=== PATIENT | female | born 1980 | race Caucasian/White ===

== ENCOUNTER 2020-04-10 21:05 | Observation (INO) ==
[2020-04-10] MEDS ORDERED: ONDANSETRON HCL/PF 2 MG/ML VIAL IV ONE (21:46)
[2020-04-10 21:49] LABS: Hematocrit 41.4 % (37.0-47.0); Hemoglobin 13.5 gm/dL (12.5-16.0); Mean Cell Volume 92.4 fl (78-100); Mean Corpuscular Hemoglobin 30.1 pg (27-31); Mean Corpuscular Hgb Conc 32.6 g/dl (32-36); Mean Platelet Volume 8.9 fl (8-12.5); Neutrophil # 3.6 K/mm3 (1.3-6.0); Neutrophil % 47.4 % (42-75.0); Platelet Count 271 K/mm3 (150-450); Red Blood Count 4.48 M/mm3 (4.2-5.4); Red Cell Distribution Width 11.9 % (11.5-14.0); White Blood Count 7.6 K/mm3 (4.0-10.5)
--- NOTE | 2020-04-10 21:53 | ERNOTE ---
Psychological HPI - Date Date of Service: 04/10/20 - General Source: Reports: family Exam Limitations: Reports: intoxication, other - Due to patient overdose with medication and altered mental status - Immun/Allergies/Home Medications Allergies/Adverse Reactions: Allergies Penicillins Allergy (Verified 04/10/20 22:01) Home Medications: HOME MEDICATIONS NK 04/10/20 [Last Taken Unknown] - History of Present Illness Narrative: Patient is 39-year-old female presents to emergency room accompanied by her significant other ambulatory with chief complaint of intentional medication overdose with the purpose of hurting herself in about an hour and a half ago. Patient past medical history is not significant for any medical problem patient does not really see any doctor on regular basis. Patient denies not drink alcohol does not do any drugs or smoke cigarettes. Significant other reports about 2 hours ago they were in an argument and she grabbed 3 bottles of his medications which were cyclobenzaprine 10 mg and tizanidine 2 and he does not know how many pills were in the bottles she took dose that she came out and she induced vomiting and she had 4 vomiting pieces of medications coming up. they decided to come to emergency room. Initially she was responsive but she started feeling drowsy and not responsive she was a little combative in the initial evaluation but after I saw the patient about 15 minutes she was calm and sleeping. Time Seen by Provider: 04/10/20 21:27 Date (Duration): 04/10/20 Time (Timing): 16:00 Arrived by: Reports: private car Intent: Reports: no prior thoughts-suicide, other - Patient was involved in argument with significant other did not mention any intent of hurting herself or someone else. Review of Systems - Narrative Narrative: Unable to evaluate due to patient situation Medical History (Last Reviewed 04/11/20 @ 01:31 by Siena Sanchez RN) No pertinent past medical history Surgical History: Surgical History (Last Reviewed 04/11/20 @ 01:31 by Siena Sanchez RN) No pertinent past surgical history Family History: Family History (Last Reviewed 04/11/20 @ 01:31 by Siena Sanchez RN) Father Heart problem Social History: (Last Reviewed 04/11/20 @ 01:34 by Siena Sanchez RN) Tobacco: Smoking Status: Never smoker Alcohol: alcohol intake: current alcohol intake frequency: holiday/special occasion Substance Use: substance use type: does not use Psychological Exam - Exam General Appearance: Present: mild distress, lethargic, irritable Head Exam: Present: normal inspection, no evidence of injury Neurological: Present: withdraws to pain, other - Patient is very drowsy and withdraws to pain. Patient does not have any focal neurological finding. Eye Exam: Normal inspection: bilateral, PERRL: bilateral, EOMI: bilateral Ears, Nose, Throat: Present: normal ENT inspection Neck: Present: normal inspection, supple Respiratory: Present: no respiratory distress, normal breath sounds, no accessory muscle use, lungs clear Cardiovascular/Chest: Present: regular rate, rhythm, no murmur, normal peripheral pulses Extremity Exam: Present: normal inspection, normal range of motion, no edema, pelvis stable. Absent: pedal edema, joint redness, joint swelling, extremity edema Skin Exam: Present: warm/dry, no cyanosis, pallor Time Seen by Provider: 04/10/20 21:27 Plan - Plan Plan: Patient is being admitted for observation Departure Clinical Impression: Intentional overdose of drug in tablet form - Departure Disposition: Short Term Hospital Inpatient Condition: Good
[2020-04-10 22:08] LABS: ALT 27 U/L (19-67); AST 23 U/L (0-48); Albumin * 3.9 gm/dl (3.4-5.0); Alkaline Phosphatase * 42 U/L (50-170); Anion Gap 12.7 mmol/L (6.8-13.8); Bilirubin, Total 0.3 mg/dL (0.0-1.1); Blood Urea Nitrogen 18 mg/dL (3-23); Ca. Corrected For Albumin 9.1 mg/dL (8.4-10.2); Calcium * 9.3 mg/dL (7.9-10.9); Carbon Dioxide 26.6 mmol/L (24-32.6); Chloride 100 mmol/L (97-106); Glucose * 133 mg/dL (70-110); Potassium 3.3 mmol/L (3.4-4.6); Salicylate Less than 2.8 mg/dL (2.8-20.0); Sodium 136 mmol/L (132-142); TSH * 2.636 uIU/mL (0.358-3.74); Total Protein 7.5 gm/dL (6.2-8.2)
[2020-04-10] MEDS: NORMAL SALINE 1,000 ML IV ONE ×2 (22:30→23:41)
[2020-04-10] MEDS ORDERED: ONDANSETRON HCL/PF 2 MG/ML VIAL ONE (23:01)
[2020-04-10 23:13] LABS: Urine Bilirubin Negative (NEGATIVE); Urine Blood Negative /ul (NEGATIVE); Urine Ketone Negative (NEGATIVE); Urine Nitrite Negative (NEGATIVE); Urine Protein Negative (NEGATIVE); Urine Urobilinogen Normal (NORMAL)
[2020-04-10 23:31] LABS: Cocaine Ur Negative (NEGATIVE); Urine Barbiturate Negative (NEGATIVE); Urine Benzodiazepines Negative (NEGATIVE); Urine Opiates Negative (NEGATIVE); Urine PCP Negative (NEGATIVE); Urine THC Negative (NEGATIVE)
[2020-04-10 23:37] LABS: Urine Amorphous Sediment Few - 1+ (NONE-FEW); Urine Appearance Slightly Cloudy (CLEAR); Urine Bacteria TRACE; Urine Color Yellow; Urine RBC None Seen /hpf (0-5); Urine WBC None Seen /hpf (0-5)
[2020-04-11] MEDS: NORMAL SALINE 1,000 ML IV PRN ×2 (00:42→09:49)
--- NOTE | 2020-04-11 14:34 | HPDIS ---
Chief Complaint - Chief Complaint Date of Service: 04/11/20 Time of Service: 14:26 Chief Complaint: AMS, overdose History of Present Illness: 39 year old female admitted for overdose. Pt states that she was upset with her and so she thought she would make him " feel bad" if she took extra muscle relaxers. She denies trying to hurt herself. Initial lab work and ekg negative for abnormalities aside from mildly low potassium. Her vitals have been stable since being here. She was initially very sleepy but has since perked up and ready to go home. She denies somnolence, thoughts of hurting herself, thoughts of hurting others. Medical History (Last Reviewed 04/11/20 @ 01:31 by Siena Sanchez RN) No pertinent past medical history Surgical History: Surgical History (Last Reviewed 04/11/20 @ 01:31 by Siena Sanchez RN) No pertinent past surgical history Family History: Family History (Last Reviewed 04/11/20 @ 01:31 by Siena Sanchez RN) Father Heart problem Social History: (Last Reviewed 04/11/20 @ 01:34 by Siena Sanchez RN) Tobacco: Smoking Status: Never smoker Alcohol: alcohol intake: current alcohol intake frequency: holiday/special occasion Substance Use: substance use type: does not use Review Of Systems (GEN) - Review of Systems Generalized/Overall Review: Present: No Symptoms Reported EENTM: Present: No Symptoms Reported Respiratory: Present: No Symptoms Reported Cardiac: Present: No Symptoms Reported Abdominal: Present: No Symptoms Reported Genitourinary: Present: No Symptoms Reported Musculoskeletal: Present: No Symptoms Reported Neurological: Present: No Symptoms Reported Skin: Present: No Symptoms Reported Immunizations: IMMUNIZATION HX Immunizations Up to Date Yes History of Influenza Vaccine No Allergies/Adverse Reactions: Allergies Allergy/AdvReac Type Severity Reaction Status Date / Time Penicillins Allergy Verified 04/10/20 22:01 Home Medications: HOME MEDICATIONS NK 04/10/20 [Last Taken Unknown] Exam - Exam Vital Signs: Vital Signs - Last Taken Temp 36.8 C 04/11/20 13:59 Pulse 83 04/11/20 13:59 Resp 16 04/11/20 13:59 BP 115/78 04/11/20 13:59 Pulse Ox 100 04/11/20 13:59 Constitutional: Present: Alert, Oriented x3, Cooperative. Absent: Somnolent ENT Exam: Present: hearing grossly normal. Absent: nasal congestion, nasal drainage Eye Exam: bilateral eye: normal inspection, PERRL, EOMI Neck: Present: non-tender, supple Respiratory: Present: lungs clear, normal breath sounds Cardiovascular/Chest: Present: regular rate, rhythm, no murmur Abdomen: Present: Normal bowel sounds, soft, nontender, nondistended Extremity: Present: normal range of motion, non-tender Appearance: Present: appropriate appearance, appropriate insight Eye contact: Present: cooperative, good eye contact Thoughts: Present: normal thought pattern, normal mood /affect Diagnostic Studies: Abnormal Lab Results 04/10/20 04/10/20 Range/Units 21: 21: Eosinophils % 3.2 H (0.0-3.0) % Potassium 3.3 L (3.4-4.6) mmol/L BUN/Creatinine Ratio 24.0 H (9.0-21.6) Random Glucose 133 H (70-110) mg/dL Alkaline Phosphatase 42 L (50-170) U/L Salicylates Less than 2.8 L (2.8-20.0) mg/dL Acetaminophen Less than 0.2 L (10.0-30.0) mcg/mL Laboratory Results WBC 7.6 K/mm3 (4.0-10.5) 04/10/20: RBC 4.48 M/mm3 (4.2-5.4) 04/10/20 21: Hgb 13.5 gm/dL (12.5-16.0) 04/10/20: Hct 41.4 % (37.0-47.0) 04/10/20 21: MCV 92.4 fl (78-100) 04/10/20 21: MCH 30.1 pg (27-31) 04/10/20: MCHC 32.6 g/dl (32-36) 04/10/20: RDW 11.9 % (11.5-14.0) 04/10/20 21: Plt Count 271 K/mm3 (150-450) 04/10/20 21: MPV 8.9 fl (8-12.5) 04/10/20 21: Immature Gran % (Auto) 0.30 % (0.001-0.429) 04/10/20 21: Immature Gran # (Auto) 0.02 K/mm3 (0.000-0.0310) 04/10/20 21: Neutrophils % 47.4 % (42-75.0) 04/10/20 21: Lymphocytes % 41.4 % (20-51) 04/10/20 21: Monocytes % 6.9 % (0.0-9) 04/10/20 21: Eosinophils % 3.2 % (0.0-3.0) H 04/10/20: Basophils % 0.8 % (0.0-1.0) 04/10/20: Nucleated RBC % 0.0 k/mm3 (0-1) 04/10/20: Neutrophils # 3.6 K/mm3 (1.3-6.0) 04/10/20 21: Lymphocytes # 3.14 k/mm3 (1.5-3.5) 04/10/20: Monocytes # 0.5 k/mm3 (0.0-1.0) 04/10/20 21: Eosinophils # 0.2 k/mm3 (0.0-0.7) 04/10/20: Absolute Basophils 0.1 k/mm3 (0.0-0.1) 04/10/20 21: Sodium 136 mmol/L (132-142) 04/10/20 21: Plasma Sodium 137 mmol/L (130-142) 04/10/20 21: Potassium 3.3 mmol/L (3.4-4.6) L 04/10/20: Chloride 100 mmol/L (97-106) 04/10/20 21: Carbon Dioxide 26.6 mmol/L (24-32.6) 04/10/20: Anion Gap 12.7 mmol/L (6.8-13.8) 04/10/20 21: BUN 18 mg/dL (3-23) 04/10/20 21: Creatinine 0.75 mg/dL (0.4-1.4) 04/10/20 21: Est GFR (Non-Af Amer) 91 mL/min (60-130) 04/10/20 21: BUN/Creatinine Ratio 24.0 (9.0-21.6) H 04/10/20 21: Random Glucose 133 mg/dL (70-110) H 04/10/20 21: Calcium 9.3 mg/dL (7.9-10.9) 04/10/20 21: Calcium Adj for Albumin 9.1 mg/dL (8.4-10.2) 04/10/20 21: Magnesium 2.0 mg/dL (1.2-2.8) 04/10/20 21: Total Bilirubin 0.3 mg/dL (0.0-1.1) 04/10/20 21: AST 23 U/L (0-48) 04/10/20: ALT 27 U/L (19-67) 04/10/20: Alkaline Phosphatase 42 U/L (50-170) L 04/10/20 21: Total Protein 7.5 gm/dL (6.2-8.2) 04/10/20 21: Albumin 3.9 gm/dl (3.4-5.0) 04/10/20 21: TSH 2.636 uIU/mL (0.358-3.74) 04/10/20 21: Urine Color Yellow 04/10/20 22:45 Urine Appearance Slightly cloudy (CLEAR) 04/10/20 22:45 Urine pH 6.0 pH (5.0-7.0) 04/10/20 22:45 Ur Specific [place] 1.020 SP.GR. (1.005-1.010) 04/10/20 22:45 Urine Protein Negative mg/dL (NEGATIVE) 04/10/20 22:45 Urine Glucose (UA) Negative mg/dL (NEGATIVE) 04/10/20 22:45 Urine Ketones Negative mg/dL (NEGATIVE) 04/10/20 22:45 Urine Blood Negative /ul (NEGATIVE) 04/10/20 22:45 Urine Nitrate Negative (NEGATIVE) 04/10/20 22:45 Urine Bilirubin Negative mg/dl (NEGATIVE) 04/10/20 22:45 Urine Urobilinogen Normal EU/dl (NORMAL) 04/10/20 22:45 Ur Leukocyte Esterase Negative /ul (NEGATIVE) 04/10/20 22:45 Urine RBC None seen /hpf (0-5) 04/10/20 22:45 Urine WBC None seen /hpf (0-5) 04/10/20 22:45 Ur Epithelial Cells 0-5 /hpf (0-5) 04/10/20 22:45 Amorphous Sediment Few - 1+ (NONE-FEW) 04/10/20 22:45 Urine Bacteria Trace (NONE) 04/10/20 22:45 Urine Culture Comments Culture to follow 04/10/20 22:45 Salicylates Less than 2.8 mg/dL (2.8-20.0) L 04/10/20 21:27 Urine Opiates Screen Negative (NEGATIVE) 04/10/20 22:45 Acetaminophen Less than 0.2 mcg/mL (10.0-30.0) L 04/10/20 21: Barbiturate Screen Negative (NEGATIVE) 04/10/20 22:45 Ur Phencyclidine Scrn Negative (NEGATIVE) 04/10/20 22:45 Urine Amphetamine Negative (NEGATIVE) 04/10/20 22:45 U Benzodiazepines Scrn Negative (NEGATIVE) 04/10/20 22:45 Urine Cocaine Screen Negative (NEGATIVE) 04/10/20 22:45 Urine Marijuana (THC) Negative (NEGATIVE) 04/10/20 22:45 Ethyl Alcohol 5.0 mg/dL (0.0-10.0) 04/10/20 21:27 SARS-CoV-2 (PCR) Not detected (NotDetected) 04/10/20 23:45 Assessment/Plan - Narrative Narrative: Patient placed under observation. She denies thoughts of trying to hurt herself. She feels well now and has no concerns. Her vitals/labs/ekg all appropriate. Advised her to eat potassium rich food. She is to follow up with her PCP in 1-2 weeks. She will be discharged home later today once she is up and about. - Assessment/Plan (1) Acute drug overdose Problem: Resolved Qualifiers: Encounter type: initial encounter (1) Acute drug overdose Problem: Resolved Qualifiers: Encounter type: initial encounter Date of Discharge:: 04/11/20 Hospital Course: Patient placed under observation. She denies thoughts of trying to hurt herself. She feels well now and has no concerns. Her vitals/labs/ekg all appropriate. Advised her to eat potassium rich food. She is to follow up with her PCP in 1-2 weeks. She will be discharged home now. No changes to her chronic medications. Advised her to stop the muscle relaxers until she sees her PCP. SHe has no concerns. Procedures Performed: none Results and Findings: Lab Pending Results 04/10/20 21:27: WBC 7.6, RBC 4.48, Hgb 13.5, Hct 41.4, MCV 92.4, MCH 30.1, MCHC 32.6, RDW 11.9, Plt Count 271, MPV 8.9, Immature Gran % (Auto) 0.30, Immature Gran # (Auto) 0.02, Neutrophils % 47.4, Lymphocytes % 41.4, Monocytes % 6.9, Eosinophils % 3.2 H, Basophils % 0.8, Nucleated RBC % 0.0, Neutrophils # 3.6, Lymphocytes # 3.14, Monocytes # 0.5, Eosinophils # 0.2, Absolute Basophils 0.1 04/10/20 21:27: Sodium 136, Plasma Sodium 137, Potassium 3.3 L, Chloride 100, C arbon Dioxide 26.6, Anion Gap 12.7, BUN 18, Creatinine 0.75, Est GFR (Non-Af Amer) 91, BUN/Creatinine Ratio 24.0 H, Random Glucose 133 H, Calcium 9.3, Calcium Adj for Albumin 9.1, Magnesium 2.0, Total Bilirubin 0.3, AST 23, ALT 27, Alkaline Phosphatase 42 L, Total Protein 7.5, Albumin 3.9, TSH 2.636, Salicylates Less than 2.8 L, Acetaminophen Less than 0.2 L, Ethyl Alcohol 5.0 04/10/20 22:45: Urine Color Yellow, Urine Appearance Slightly cloudy, Urine pH 6.0, Ur Specific [place] 1.020, Urine Protein Negative, Urine Glucose (UA) Negative, Urine Ketones Negative, Urine Blood Negative, Urine Nitrate Negative, Urine Bilirubin Negative, Urine Urobilinogen Normal, Ur Leukocyte Esterase Negative, Urine RBC None seen, Urine WBC None seen, Ur Epithelial Cells 0-5, Amorphous Sediment Few - 1+, Urine Bacteria Trace, Urine Culture Comments Culture to follow 04/10/20 22:45: Urine Opiates Screen Negative, Barbiturate Screen Negative, Ur Phencyclidine Scrn Negative, Urine Amphetamine Negative, U Benzodiazepines Scrn Negative, Urine Cocaine Screen Negative, Urine Marijuana (THC) Negative 04/10/20 23:45: SARS-CoV-2 (PCR) Not detected Discharge Location: Home Disposition: Home self-care Condition: Good Discharge Activity: Activity as tolerated Discharge Diet: General/regular food Complete Home Medications List: Complete Home Medication List: NK 04/10/20
[2020-04-11 15:15] VITALS: BP 117/74
== END 2020-04-11 15:30 | disposition home or self-care (01) ==
LOC: ER 21:05 → MS 21:05
PROVIDERS: ADMIT Family Medicine; ATTEND Family Medicine